=== PATIENT | male | born 1965 | race Caucasian/White ===

== ENCOUNTER 2017-01-28 06:41 | Day surgery (SDC) | payer OTHER ==
[~2017-01-28] VITALS: Ht 177.8 cm; Wt 96.6 kg
--- NOTE | ~2017-01-28 | S ---
[facility] [place] [address] SURGICAL PATH RPT PROCEDURE Name: GARRETT CONN Room #: DEP [facility].#: [id number] Admission: 01/28/17 Date of : 69 Discharge: 01/28/17 Report #: [id number] Path Case #: [id number] PATHOLOGY REPORT COLLECTION DATE: 01/28/2017 RECEIVED DATE: 01/28/2017 SUBMITTING PHYS: Dr. Pablito Sheppard OTHER PHYS: Dr. Estefania Santos SPECIMEN(S) RECEIVED: A.Right lower lid basal cell carcinoma * * * * * * * * * * * * FINAL DIAGNOSIS: Skin, right lower lid, excision: - BASAL CELL CARCINOMA. - Margins of resection free of malignancy. (IUV:mgr; 01/29/2017) PATHOLOGIST: Kamila Mares M.D. REPORT ELECTRONICALLY SIGNED BY: Kamila Mares M.D. DATE/TIME: 01/29/2017 13:54 * * * * * * * * * * * * GROSS PATHOLOGY: The specimen is received fresh from the OR labeled with the patient's name, and "Right lower lid basal cell carcinoma" consists of a 1.2 x 0.7 x 0.5 cm ellipse of oriented skin. The specimen is oriented as superior, medial, inferior and lateral. The medial tip is assigned 12:00, the inferior is assigned 3:00, the lateral is assigned 6:00, and superior is assigned 9:00. The 12 to 3 to 6:00 is inked black, the 6 to 9:00 is inked blue and the 9 to 12:00 is inked green. The specimen is sectioned into four pieces and submitted for frozen section in entirety as FSA1 and subsequently submitted for permanent sections as A1. (IUV:db; 01/28/2017) FROZEN SECTION DIAGNOSIS: (Kamila Mares M.D.) FSA1. Skin, right lower lid, excision: - BASAL CELL CARCINOMA. - Margins free. These findings were discussed with Dr. Pablito Sheppard in OR6 at [facility] and the written report is placed in the patient's chart. Testing performed by [facility] at [address] [place] [address] SURGICAL PATH RPT PROCEDURE Name: GARRETT CONN Room #: DEP [facility].#: [id number] Admission: 01/28/17 Date of : 69 Discharge: 01/28/17 Report #: [id number] Path Case #: [id number] [address], [place] [address] CLINICAL HISTORY: Previously biopsied basal cell carcinoma. INITIAL CPT CODE(S): A; 27716, 54164 Professional services performed by [facility] at [place] [address], [place] [address] Technical services performed by [facility] at [address] [place] [address]., [address] [address]. [facility] [address] [address] PHONE: [phone] DIRECTOR: Merlin Soliz M.D. * * * END OF REPORT * * *
[~2017-01-28 06:41] MED LIST: ASPIR 8181 MG PO; ATORVASTATIN CA40 MG PO; EFFIENT10 MG PO; FISH OIL 1,001000 M2 PO; FLOMAX0.4 MG PO; IMDUR 30 MG TAB30 M1 PO; LISINOPRIL2.5 M1 PO; LOPRESSOR50 PO; PAROXETINE HCL40 MG PO; VALIUM5 MG PO
[2017-01-28 10:30] VITALS: BP 113/71
== END 2017-01-28 13:10 | disposition home or self-care (01) ==
LOC: OR 06:41 → TBA 06:41 → OR 09:45
DX: C44.112 Basal cell carcinoma of skin of right eyelid, including canthus (principal); F32.9 Major depressive disorder, single episode, unspecified; F41.9 Anxiety disorder, unspecified; Z87.891 Personal history of nicotine dependence; I10 Essential (primary) hypertension; E78.5 Hyperlipidemia, unspecified; I21.3 ST elevation (STEMI) myocardial infarction of unspecified site; Z95.1 Presence of aortocoronary bypass graft; I20.9 Angina pectoris, unspecified
CPT/HCPCS: 50010; 50101; 50398; 56531; 62110; 62850; 70005